=== PATIENT | male | born 1975 | race African-American/Black ===

== ENCOUNTER 2024-02-21 05:37 | Emergency (ER) | payer BC ==
[2024-02-21 06:38] LABS: #Basophils Less than 0.03 10x3/uL (0.0-0.2); %Basophils 0.2 % (0.0-1.0); %Eosinophils 1.4 % (0.0-10.0); %Lymphocytes 22.2 % (21.0-51.0); %Neutrophils 68.9 % (42.0-75.0); Hematocrit 41.4 % (42.0-52.0); Hemoglobin 13.7 g/dL (14.0-18.0); Mean Corpuscular HGB CONC 33.1 g/dL (32.0-36.0); Mean Corpuscular Volume 84.7 fL (78.0-98.0); Mean Platelet Volume 9.9 fL (7.4-10.4); Platelet Count 264 10x3/uL (130-400); RBC Distribution Width 16.1 % (11.5-14.5); Red Blood Cell (RBC) Count 4.89 mill/uL (4.70-6.10)
[2024-02-21 06:53] LABS: ALT (SGPT) 8 U/L (8-55); AST (SGOT) 13 U/L (5-34); Albumin 3.8 g/dL (3.5-5.0); Alkaline Phosphatase 82 U/L (40-110); Anion Gap 12 mmol/L (10-20); BUN (Urea Nitrogen) 11 mg/dL (8.9-20.6); Bilirubin, Total 0.4 mg/dL (0.2-1.2); Calc. Creatinine Clearance 0 mL/min (70-130); Calcium 9.4 mg/dL (7.8-10.44); Carbon Dioxide 29 mmol/L (22-29); Chloride 104 mmol/L (98-107); Estimated GFR 96; Globulin 3.9 g/dL (2.4-3.5); Glucose 110 mg/dL (70-105); Potassium 3.7 mmol/L (3.5-5.1); Protein, Total 7.7 g/dL (6.0-8.3); Sodium 141 mmol/L (136-145)
[2024-02-21 06:55] LABS: Prothrombin Time 12.9 sec (12.0-14.7)
[2024-02-21 06:56] LABS: PTT 28.7 sec (22.9-36.1)
[2024-02-21] MEDS ORDERED: Amlodipine 5 MG TAB ONE (08:17)
== END 2024-02-21 08:30 | disposition home or self-care (01) ==
LOC: ERS 05:37
DX: R04.0 Epistaxis (principal); I10 Essential (primary) hypertension; F17.290 Nicotine dependence, other tobacco product, uncomplicated
CPT/HCPCS: 80053; 84484; 85025; 85610; 85730; 93005

== ENCOUNTER 2024-02-22 14:41 | Emergency (ER) | payer BC | END 2024-02-22 16:08 | disposition home or self-care (01) | LOC: ERS 14:41 | DX: R04.0 Epistaxis (principal); I10 Essential (primary) hypertension; F17.290 Nicotine dependence, other tobacco product, uncomplicated | CPT/HCPCS: 99282 ==

== ENCOUNTER 2024-03-30 06:54 | Outpatient (CLI) | payer BC | END 2024-03-30 06:55 | disposition home or self-care (01) | LOC: BICULT 06:54 | PROVIDERS: ATTEND Family Medicine | DX: I10 Essential (primary) hypertension (principal); N28.1 Cyst of kidney, acquired | CPT/HCPCS: 76770 ==